=== PATIENT | female | born 1950 | race Caucasian/White ===

== ENCOUNTER → 2016-05-03 | Outpatient (CLI) | payer MEDICARE, BC ==
--- NOTE | 2016-05-03 16:39 | CR ---
EXAMINATION: Right ankle HISTORY: Pain COMPARISON: 03/30/2016 TECHNIQUE: 2 views FINDINGS/IMPRESSION: There is a nondisplaced healing posterior malleolus fracture and a nondisplaced healing medial malleolus avulsion fracture. Overall position and alignment appear unchanged. Mild a djacent soft tissue swelling is noted.
== END | disposition home or self-care (01) ==
LOC: MW.CHORTHO 08:34
PROVIDERS: ATTEND Physician Assistant
DX: S82.51XD Displaced fracture of medial malleolus of right tibia, subsequent encounter for closed fracture with routine healing (principal)
CPT/HCPCS: 73600; G0463

== ENCOUNTER 2023-11-12 13:17 | Observation (INO) | payer MEDICARE, BC ==
[2023-11-12 15:15] LABS: BASOPHILS ABSOLUTE AUTO 0.03 K/uL (0.00-0.20); BASOPHILS PERCENT AUTO 0.3 % (0.0-1.0); EOSINOPHILS ABSOLUTE AUTO 0.04 K/uL (0.00-0.45); EOSINOPHILS PERCENT AUTO 0.4 % (0.0-6.0); HEMATOCRIT 47.2 % (37.0-47.0); HEMOGLOBIN 15.4 g/dL (12.0-16.0); IMMATURE GRAN ABSOLUTE AUTO 0.03 K/uL (0.00-0.05); IMMATURE GRAN PERCENT AUTO 0.3 % (0.0-0.4); LYMPHOCYTES ABSOLUTE AUTO 1.57 K/uL (1.00-4.80); LYMPHOCYTES PERCENT AUTO 15.1 % (24.0-44.0); MEAN CORPUSCULAR HEMOGLOBIN 29.2 pg (28.0-32.0); MEAN CORPUSCULAR HGB CONC 32.6 g/dL (32.0-36.0); MEAN CORPUSCULAR VOLUME 89.4 fL (83.0-99.0); MEAN PLATELET VOLUME 9.1 fL (9.4-12.3); MONOCYTES ABSOLUTE AUTO 0.41 K/uL (0.00-0.80); MONOCYTES PERCENT AUTO 3.9 % (0.0-8.0); NEUTROPHILS ABSOLUTE AUTO 8.34 K/uL (1.80-7.70); PLATELET COUNT,PLT 258 K/uL (150-400); RED BLOOD CELL COUNT 5.28 M/uL (4.10-5.30); WHITE BLOOD CELL COUNT,WBC 10.42 K/uL (3.9-11.3)
[2023-11-12 15:43] LABS: CALCIUM 10.3 mg/dL (8.5-10.1); CARBON DIOXIDE,CO2 18.9 mmol/L (21.0-32.0); CREATININE 1.8 mg/dL (0.6-1.0); EST CRCL DRUG DOSING (CG) 21.32 mL/min; POTASSIUM,K 6.4 mmol/L (3.5-5.1)
[2023-11-12] MEDS ORDERED: Sodium Chloride 0.9% 2.5 ML Syringe FLUSH PRN (15:54)
[2023-11-12] MEDS ORDERED: Sodium Chloride 0.9% 10 ML Syringe FLUSH PRN (15:54)
[2023-11-12] MEDS: Insulin Regular, Human 100 Units/ML 10 ML Vial IVPUSH ONE (16:33)
[2023-11-12] MEDS: 50% Dextrose in Water 50 ML Syringe IVPUSH ONE (16:34)
[2023-11-12] MEDS: Sodium Chloride 0.9% 1,000 ML IV ONE (16:39)
[2023-11-12] MEDS: Furosemide 20 MG/2 ML VIAL IVPUSH ONE (16:39)
[2023-11-12] MEDS: Sodium Zirconium Cyclosilicate 10 GM Packet PO ONE (16:42)
[2023-11-12 17:12] LABS: APPEARANCE,URINE SLT CLOUDY; BILIRUBIN,URINE NEGATIVE (NEGATIVE); COLOR,URINE YELLOW; GLUCOSE,URINE >=1000 mg/dL (NEGATIVE); KETONES,URINE NEGATIVE (NEGATIVE); LEUKOCYTE ESTERASE,URINE SMALL (NEGATIVE); NITRITE,URINE NEGATIVE (NEGATIVE); OCCULT BLOOD,URINE TRACE-INTACT (NEGATIVE); PH,URINE 5.5 (5.0-8.0); PROTEIN,URINE NEGATIVE (NEGATIVE); UROBILINOGEN,URINE 0.2 EU/dL (<2.0)
[2023-11-12 17:23] LABS: POTASSIUM,URINE RANDOM 18.7 mmol/L
[2023-11-12 17:36] LABS: BACTERIA,URINE 2+ (NEGATIVE); EPITHELIAL CELLS,URINE MODERATE (NONE-FEW)
[2023-11-12] MEDS: cefTRIAXone 1 GM in Sodium Chloride 0.9% 50 ML IV ONE ×3 (18:00→20:30)
[2023-11-12] MEDS ORDERED: Acetaminophen 325 MG Tab PO PRN (18:11)
[2023-11-12] MEDS ORDERED: Ondansetron 4 MG Tab.DIS PO PRN (18:11)
[2023-11-12] MEDS ORDERED: Polyethylene Glycol 3350 Powder 17 GM Packet PO PRN (18:11)
[2023-11-12] MEDS ORDERED: Enoxaparin 40 MG/0.4 ML Syringe SUBCUT SCH (18:30)
[2023-11-12] MEDS ORDERED: Glucagon,Human Recombinant 1 MG Vial IM PRN (18:49)
[2023-11-12] MEDS ORDERED: 50% Dextrose in Water 50 ML Syringe IVPUSH PRN (18:49)
[2023-11-12] MEDS: Enoxaparin 30 MG/0.3 ML Syringe SUBCUT SCH (19:57)
[2023-11-12] MEDS: atorvaSTATin 20 MG Tab PO SCH (20:04)
[2023-11-12] MEDS: Insulin Glargine,Hum.Rec.Anlog 100 UNIT/ML 3 ML Pen SUBCUT SCH (20:38)
[2023-11-13 05:51] LABS: BASOPHILS ABSOLUTE AUTO 0.03 K/uL (0.00-0.20); BASOPHILS PERCENT AUTO 0.4 % (0.0-1.0); EOSINOPHILS ABSOLUTE AUTO 0.04 K/uL (0.00-0.45); EOSINOPHILS PERCENT AUTO 0.5 % (0.0-6.0); HEMATOCRIT 44.7 % (37.0-47.0); HEMOGLOBIN 14.1 g/dL (12.0-16.0); IMMATURE GRAN ABSOLUTE AUTO 0.01 K/uL (0.00-0.05); IMMATURE GRAN PERCENT AUTO 0.1 % (0.0-0.4); LYMPHOCYTES ABSOLUTE AUTO 1.82 K/uL (1.00-4.80); LYMPHOCYTES PERCENT AUTO 22.7 % (24.0-44.0); MEAN CORPUSCULAR HEMOGLOBIN 28.3 pg (28.0-32.0); MEAN CORPUSCULAR HGB CONC 31.5 g/dL (32.0-36.0); MEAN CORPUSCULAR VOLUME 89.6 fL (83.0-99.0); MEAN PLATELET VOLUME 9.2 fL (9.4-12.3); MONOCYTES ABSOLUTE AUTO 0.58 K/uL (0.00-0.80); MONOCYTES PERCENT AUTO 7.2 % (0.0-8.0); NEUTROPHILS ABSOLUTE AUTO 5.55 K/uL (1.80-7.70); NEUTROPHILS PERCENT AUTO 69.1 % (41.0-71.0); PLATELET COUNT,PLT 244 K/uL (150-400); RED BLOOD CELL COUNT 4.99 M/uL (4.10-5.30); WHITE BLOOD CELL COUNT,WBC 8.03 K/uL (3.9-11.3)
[2023-11-13 06:27] LABS: A/G RATIO 1.1 (0.9-1.6); ALBUMIN 3.6 g/dL (3.4-5.0); BILIRUBIN TOTAL 0.4 mg/dL (0.2-1.0); CALCIUM 9.5 mg/dL (8.5-10.1); CARBON DIOXIDE,CO2 21.5 mmol/L (21.0-32.0); CREATININE 1.7 mg/dL (0.6-1.0); EST CRCL DRUG DOSING (CG) 22.57 mL/min; POTASSIUM,K 5.3 mmol/L (3.5-5.1)
[2023-11-13] MEDS: Insulin Aspart 100 Units/ML 3 ML Pen SUBCUT SCH (06:55)
[2023-11-13 11:28] VITALS: BP 122/75; PULSE 72
[2023-11-13] MEDS ORDERED: cefTRIAXone 1 GM in Sodium Chloride 0.9% 50 ML IV SCH (14:00)
== END 2023-11-13 11:30 | disposition home or self-care (01) ==
LOC: MW.ED 13:17 → MW.MS 17:37
PROVIDERS: ADMIT Family Medicine; ATTEND Family Medicine
DX: E87.5 Hyperkalemia (principal); N39.0 Urinary tract infection, site not specified; I12.9 Hypertensive chronic kidney disease with stage 1 through stage 4 chronic kidney disease, or unspecified chronic kidney disease; E11.22 Type 2 diabetes mellitus with diabetic chronic kidney disease; N18.4 Chronic kidney disease, stage 4 (severe); E78.00 Pure hypercholesterolemia, unspecified; Z79.4 Long term (current) use of insulin; Z79.84 Long term (current) use of oral hypoglycemic drugs; Z79.899 Other long term (current) drug therapy; Z91.048 Other nonmedicinal substance allergy status
CPT/HCPCS: 36415; 80048; 80053; 81001; 82436; 82947; 84132; 84133; 84300; 85025; 87086; 93005; 96361; 96374; 96375; 99285; A9270; J0696; J1650; J1815; J1940; J3490; J7030; 93010; 96372; 96376; 99284; G0378